=== PATIENT | female | born 1990 | race Caucasian/White ===

== ENCOUNTER → 2019-01-16 09:25 | Outpatient (CLI) | payer OTHER, SELFPAY ==
--- NOTE | 2019-01-16 09:29 | DI.RAD.S_ITS ---
PROCEDURE: XR CERVICAL SPINE 2V OR 3V INDICATIONS: Cervical pain TECHNIQUE: 3 views of the cervical spine were acquired. COMPARISON: None. FINDINGS: Bones: No fractures or dislocations to the C7-T1 level. The lateral masses of C1 appear intact on the odontoid view. There is straightening of the cervical lordosis with slight reversal at C5-C6. No suspicious bony lesions. The disc spaces appear preserved. Soft tissues: No prevertebral soft tissue swelling. IMPRESSION: 1. No fracture or subluxation. 2. Straightening of the cervical lordosis with slight reversal at C5-C6. The finding is nonspecific and may be due to positioning or muscle spasm. Dictated by: Ras Isidro M.D. on 01/16/2019 at 9:45 Approved by: Ras Isidro M.D. on 01/16/2019 at 9:48
== END ==
PROVIDERS: PCP Physician Assistant; Visit Provider Physician Assistant
DX: M54.2 Cervicalgia (principal)
CPT/HCPCS: 72040

== ENCOUNTER → 2020-06-04 11:32 | Outpatient (CLI) | payer OTHER, SELFPAY ==
[2020-06-04 14:47] LABS: Follicle Stimulating Hormone 6.66 mIU/mL; Luteinizing Hormone 4.89 mIU/mL
== END ==
PROVIDERS: PCP Family Medicine; Referring Provider Obstetrics & Gynecology; Visit Provider Obstetrics & Gynecology
DX: E28.2 Polycystic ovarian syndrome (principal)
CPT/HCPCS: 36415; 83001; 83002

== ENCOUNTER → 2020-07-08 15:07 | Outpatient (CLI) | payer OTHER, SELFPAY ==
[2020-07-09 10:14] LABS: COVID19 Sendout Not Detected (Not Detect)
== END ==
PROVIDERS: PCP Family Medicine; Visit Provider Physician Assistant
DX: Z11.59 Encounter for screening for other viral diseases (principal)
CPT/HCPCS: 87635

== ENCOUNTER 2020-07-11 11:00 | Day surgery (SDC) | payer OTHER, SELFPAY ==
[2020-07-09 08:12] VITALS: BMI 21.4
[2020-07-11] VITALS (7 sets, daily range): BP systolic 106–130; BP diastolic 74–91; PULSE 81–106; RESP 11–18; TEMP 36.4–37.1; O2SAT 96–100; BMI 21.4
[2020-07-11] MEDS: ACETAMINOPHEN 325 MG TABLET 975 MG PO (11:24)
[2020-07-11] MEDS: SCOPOLAMINE 1 PATCH TOP (11:25)
[2020-07-11] MEDS: LACTATED RINGERS 1,000 ML 100 ML IV (11:25)
--- NOTE | 2020-07-11 12:01 | PM.HP.1 ---
History of Present Illness History of Present Illness Date Patient Seen: 07/11/20 Time Patient Seen: 12:01 Chief complaint: SDC Narrative: Patient is a 29-year-old 3 para 2 with a hemorrhagic left ovarian cyst that is symptomatic. She is here for a laparoscopic removal of left hemorrhagic ovarian cyst Patient History Medical History (Updated 06/09/20 @ 16:09 by Breonna Weems DO) Polycystic ovaries (Acute) Surgical History History of third molar tooth extraction Status post appendectomy Family & Social History Family History Mother Age: 54 History of melanoma Sister Age: 34 History of cervical cancer Social History: household members spouse,children Tobacco & Substance use: Smoking Status Never smoker alcohol intake current alcohol intake frequency a few times a month Substance Use Type does not use Meds Home Medications and Allergies Home Medications Medication Instructions Recorded Confirmed Type clonazepam 0.5 mg disintegrating See Rx Instructions PO DAILY PRN 03/03/19 07/11/20 Rx tablet #10 tab buspirone 10 mg tablet 10 mg PO BID #60 tab 10/30/19 07/11/20 Rx Allergies Allergy/AdvReac Type Severity Reaction Status Date / Time escitalopram AdvReac Mild Tunnel Verified 07/11/20 11:37 vision Exam Vital Signs (past 8 hours): - 07/11/20 11:31 Temperature 98.8 F Pulse Rate 106 H Respiratory Rate 16 Blood Pressure 130/91 H Pulse Oximetry 100 Oxygen Delivery Method Room Air Narrative Exam Narrative: HEENT: [No thyromegaly, no anterior cervical or supraclavicular lymphadenopathy.] Lungs:[Clear to auscultation bilaterally, no wheezes.] Cardiovascular: [Regular rate and rhythm, no murmurs, rubs, or gallops]. Abdomen: [No scars. No hepatosplenomegaly. No masses palpable.] External genitalia: [Normal] Vagina: [Normal] Cervix: Parous Bimanual exam: 7 Week size uterus. Mobile. Left adnexal tenderness Rectal: [No masses]. Assessment & Plan Assessment & Plan narrative: Assessment: 29-year-old 3 para 2 with a hemorrhagic left ovarian cyst that is symptomatic and persistent Plan: Laparoscopic removal of left ovarian cyst The risks, benefits, and alternatives to the procedure were explained to the patient. The risks including bleeding, infection, injury to the bowel, bladder, or ureters. She understands these risks and agrees to proceed. A full par Q was held and consent form was signed. COVID-19 COVID-19 status: Negative Result date/Date tested (Pos, Neg/Pending): 07/08/20 Time Spent With Patient Time with patient: 15-24 minutes
--- NOTE | 2020-07-11 12:03 | PM.PREOP ---
Pre-operative Note COVID-19 COVID-19 status: Negative Result date/Date tested (Pos, Neg/Pending): 07/08/20 Interval Note History & Physical reviewed/Exam performed by Physician: Yes Changes to H&P: No H&P completed within 30 days and has changed as indicated here:: 07/12/20
--- NOTE | 2020-07-11 12:28 | SUR.OPER ---
Lithotomy on padded OR bed, head on pillow, arms secured on padded arm boards at <90 degrees abduction. Legs secured in padded yellow fins stirrups.
[2020-07-11] MEDS: BUPIVACAINE 0.5% W/ EPI (PF) 30 ML VIAL INJ (12:35)
--- NOTE | 2020-07-11 13:20 | SUR.PHASEI ---
Pt awoke, denied pain, eating ice chips with no complaints.
--- NOTE | 2020-07-11 14:51 | PM.GYNOP.1 ---
Operative Date/Time/Diagnoses Date of procedure: 07/11/20 Time of procedure: 13:00 Pre-op diagnosis: Left hemorrhagic ovarian cyst Left-sided pelvic pain Post-op diagnosis: same Procedure & Clinicians Procedure: Procedures Operation Date: 07/11/20 12:30 Actual Procedures Side Surgeon p Laparoscopic CAUTERIZATION OF MULTIPLE BILATERAL OVARIAN CYSTS LYSIS OF ADHESIONS Left Lucrecia Montoya MD Indications: Left hemorrhagic ovarian cyst Left pelvic pain Surgeon: Lucrecia Montoya Operative Notes Findings: 6- 7 week size anteverted uterus Normal left tube Ovaries bilaterally polycystic in nature Left ovary with a hemorrhagic cyst measuring 2-3 cm. Right ovary with multiple simple cysts largest 1 measuring 1.5 cm Appendix previously removed Liver and gallbladder normal Significant right lower quadrant and mid pelvic adhesions. Omental to anterior abdominal wall adhesion Right tube significantly distorted with adhesions Closure Type: primary Specimen(s): none Estimated blood loss (mL): 5 Blood products transfused: none Procedure in detail: After informed consent was obtained, the patient was taken to the operating room where she was placed in the dorsal supine position. After adequate general endotracheal anesthesia was achieved, she was placed in the dorsal lithotomy position, and prepped and draped in the usual sterile fashion. A time-out was performed. A bivalve speculum was placed into the vagina and the anterior lip of the cervix grasped with a single-tooth tenaculum. Cervical os was sequentially dilated until the Zumi uterine manipulator could pass easily into the endometrial cavity. The single-tooth tenaculum was removed from the anterior lip of the cervix. The bivalve speculum was removed from the vagina. Attention was then turned to the abdomen where 6 cc of 0.25% Marcaine with epinephrine were injected in the umbilical fold. A 5 mm incision was made. The Veress needle was placed into the peritoneal cavity, and its placement confirmed by aspiration and drop test. The abdominal cavity was insufflated with 3.1 L of CO2. The Veress needle was removed, and a 5 mm trocar was placed without difficulty. Initial inspection showed a ?curtain? of omental to anterior abdominal wall adhesions. A 2nd incision was made lateral to the umbilicus, midway between the pubic symphysis and umbilicus, after 6 cc of 0.25% Marcaine with epinephrine were injected. A 5 mm trocar was placed under direct visualization. This was repeated on the patient's right side. The omentum was grasped with an atraumatic grasper and with care to make sure that no bowel was involved with the omentum, the omentum was cauterized and cut near the anterior abdominal wall. Endo Luis were used for the filmy adhesions. The adhesions extended down into the right lower quadrant and near the right tube and ovary. All of these adhesions were taken down. There was an adhesion between the ovary and the anterior abdominal wall and this was cauterized and cut with the PlasmaKinetic. The right ovary was visualized and there were a few small 1 to 1.5 cm simple cyst. PlasmaKinetic was used to open the cyst and cauterize inside. On the left ovary there was a potential small area of endometriosis which was cauterized. There also was a hemorrhagic cyst. This was opened and drained and the inside of the cyst was cauterized. Hemostasis was achieved. The instruments were removed from the abdomen. The CO2 was allowed to escape. The trocars were removed from the abdomen. The incisions were repaired with 4 0 Biosyn in a subcuticular fashion. Steri-Strips, 2 x 2, and op site were placed. The Zumi uterine manipulator was removed from the uterus. Sponge, lap, and instrument counts were correct x2. The patient tolerated the procedure well, and was taken to PACU in stable condition. Complications: none Post-operative Condition: stable Disposition: PACU Plan for aftercare: Home after recovery
== END 2020-07-11 13:59 | disposition home or self-care (01) ==
PROVIDERS: PCP Family Medicine; Referring Provider Obstetrics & Gynecology; Visit Provider Obstetrics & Gynecology
PROC: (CPT 58661; principal; 2020-07-11 12:30)
DX: N83.202 Unspecified ovarian cyst, left side (principal); N83.292 Other ovarian cyst, left side; N73.6 Female pelvic peritoneal adhesions (postinfective)
CPT/HCPCS: 58662; J0330; J1100; J1885; J2250; J2405; J2704; J3010

== ENCOUNTER → 2021-10-13 08:14 | Outpatient (CLI) | payer OTHER, SELFPAY ==
--- NOTE | 2021-10-13 08:15 | DI.US.S_ITS ---
PROCEDURE: US PELVIC COMPLETE INDICATIONS: RIGHT PELVIC PAIN X 1 MONTH. HISTORY OF CYSTS. TECHNIQUE: Real-time scanning was performed of the pelvic organs, with image documentation. Additional endovaginal scanning was necessary due to incomplete visualization of the adnexal and endometrial structures by transabdominal scanning. COMPARISON: None. FINDINGS: Uterus: Uterus is anteverted and normal in size at 7.8 x 5.8 x 4.4 cm. The myometrium is homogeneous. The endometrium measures 3.7 mm combined thickness. Trace anechoic fluid noted in the endometrial cavity Ovaries: The right ovary measures 3.4 x 2.4 x 2.5 cm, with a calculated ovarian volume of 10.7 cc. The left ovary measures 2.6 x 2.1 x 2.5 cm, with a calculated ovarian volume of 5.7 cc. The ovaries have a normal sonographic appearance. Less than 12 follicles can be seen in each ovary. No adnexal masses are seen. Doppler evaluation demonstrates normal arterial and venous flow in the ovaries bilaterally. Other: No pathologic free abdominal or pelvic fluid. IMPRESSION: 1. Uterus is sonographically normal. 2. Adnexa are sonographically normal. 3. No evidence of ovarian torsion. Please note ultrasound cannot exclude intermittent ovarian torsion. Dictated by: Juanis Jones MD, PhD on 10/14/2021 at 16:26 Approved by: Juanis Jones MD, PhD on 10/14/2021 at 16:29 We strive to produce accurate, complete, and clear reports of imaging services. To assist us in improving patient care, this report was composed using standard report templates and voice recognition software. Therefore, it may contain abnormal punctuation, misrecognitions, insertions and/or omissions. Occasional wrong-word or sound-alike substitutions may occur. Though we review the report and make efforts to correct it, we do recommend that the report be read carefully in proper context to recognize any text inaccuracies.
== END ==
PROVIDERS: PCP Family Medicine; Referring Provider Obstetrics & Gynecology; Visit Provider Obstetrics & Gynecology
DX: E28.2 Polycystic ovarian syndrome (principal); R10.2 Pelvic and perineal pain; M54.9 Dorsalgia, unspecified
CPT/HCPCS: 76830; 76856

== ENCOUNTER → 2022-02-02 10:48 | Outpatient (CLI) | payer OTHER, SELFPAY ==
[2022-02-02 14:02] LABS: COVID19 -Nasal RAPID Negative (Negative)
== END ==
PROVIDERS: PCP Family Medicine; Visit Provider Obstetrics & Gynecology
DX: Z01.812 Encounter for preprocedural laboratory examination (principal); Z20.822 Contact with and (suspected) exposure to COVID-19
CPT/HCPCS: 87635

== ENCOUNTER 2022-02-03 08:18 | Day surgery (SDC) | payer OTHER, SELFPAY ==
--- NOTE | 2022-02-03 | PATH_ITS ---
[facility] Accession Number: [id number] . 01 Material submitted: . fallopian tube - RIGHT TUBE . 02 Diagnosis: Right Tube, Salpingectomy: Fallopian tube, complete cross sections; negative for malignancy. Benign multiloculated paratubal cyst (1.2 cm). MRV 02/06/2022 1302 Local . 02 Electronically signed: . Cheyenne Le MD, Pathologist NPI- [id number] . 01 Gross description: . Received in formalin and labeled with the patient's name and designated right tube is a 7.5 cm long x 0.4 - 0.6 cm in diameter fimbriated fallopian tube. The outer surface is vicente-estrada with mild focal adhesions and one, 1.2 cm multiloculated, semi-translucent smooth-walled paratubal cyst filled with clear watery fluid, adjacent to the attached open fimbria. No additional lesions are identified. Surgery Scheduler sections, including entire bisected fimbria and paratubal cyst, are submitted in A1. ([id number]) /[facility] 02/05/2022 1725 Local . 02 Pathologist provided ICD-10: N93.9, R10.2, R10.31, Z30.430, N83.8 . 02 CPT . 041614 Specimen Comment: A courtesy copy of this report has been sent to [phone] Specimen Comment: [id number] Performed at: 01 [facility] [address] [facility], [place], [place] [id number] MD Ras Martins MD Phone: [phone] Performed at: 02 [facility] [id number] [place] [id number] MD Albertina Rubi MD Phone: [phone]
[2022-02-03 08:38] VITALS: BP 130/97; PULSE 93; RESP 16; TEMP 36.3; O2SAT 100; BMI 21.9
[2022-02-03] MEDS: LACTATED RINGERS 1,000 ML 100 ML IV (08:53)
--- NOTE | 2022-02-03 09:06 | PM.PREOP ---
Pre-operative Note COVID-19 COVID-19 status: Negative Result date/Date tested (Pos, Neg/Pending): 02/02/22 Criteria for continued procedure: Delay expected to result in less-positive ultimate med/surg outcome and Non-surgical alternatives not available or appropriate per current SOC Interval Note History & Physical reviewed/Exam performed by Physician: Yes Changes to H&P: No H&P completed within 30 days and has changed as indicated here:: 01/28/22
--- NOTE | 2022-02-03 09:21 | SUR.OPER ---
Lithotomy on padded OR bed, head on pillow, arms secured on padded arm boards at <90 degrees abduction. Legs secured in padded yellow fins stirrups.
[2022-02-03] MEDS: CEFAZOLIN 2 GM/20 ML SYRINGE IV (09:43)
[2022-02-03] MEDS: BUPIVACAINE 0.5% (PF) 30 ML, EPINEPHrine 0.15 MG INJ (10:26)
--- NOTE | 2022-02-03 10:44 | SUR.OPER ---
Mirena implant 02-03-2022. Lot #[id number] Exp: 12/2023
[2022-02-03 10:59] VITALS: BP 86/65; PULSE 120; RESP 16; TEMP 36; O2SAT 99
--- NOTE | 2022-02-03 11:00 | P.OP_ITS ---
Operative Date/Time/Diagnoses Date of procedure: 02/03/22 Time of procedure: 11:00 Pre-op diagnosis: Pelvic adhesions Pelvic pain Contraceptive management Post-op diagnosis: same Procedure & Clinicians Procedure: Procedures Operation Date: 02/03/22 09:45 Actual Procedure Side Surgeon samuel PARHAM Laparoscopy/ Lysis of Adhesions/ Right salpingectomy Lucrecia Montoya MD s D&C Hysteroscopy, Mirena IUD placement Lucrecia Montoya MD Indications: Pelvic pain Pelvic adhesions Contraceptive management Surgeon: Lucrecia Montoya Agricultural Research Engineer: Francisco Apple Anesthesia Type: General and Local Operative Notes Findings: 6 week size anteverted uterus RLQ adhesions Omental to anterior abdominal wall adhesions Normal right ovary Normal left tube and ovary Normal liver and gallbladder Right tube tortuous and dilated and adhesed to right pelvic sidewall Closure Type: primary Specimen(s): right tube Applied: catheter (in/out) Estimated blood loss (mL): 5 Blood products transfused: none Procedure in detail: The patient was taken to the operating room where she was placed in the dorsal supine position. After adequate general endotracheal anesthesia was achieved, she was placed in the dorsal lithotomy position, and prepped and draped in the usual sterile fashion. A time-out was performed. A bivalve speculum was placed into the vagina and the anterior lip of the cervix was grasped with a single- tooth tenaculum. The cervical os was sequentially dilated until the Zumi uterine manipulator could pass easily into the endometrial cavity. The single- tooth tenaculum was removed from the anterior lip of the cervix. The bivalve speculum was removed from the vagina. Attention was then turned to the abdomen where 6 cc of 0.5% Marcaine with epinephrine were injected in the umbilical fold. A 5 mm incision was made through the previous incision. The Veress needle was placed into the peritoneal cavity, and its placement confirmed by aspiration and drop test. The abdominal cavity was insufflated with 3.0 L of CO2. The Veress needle was removed, and a 5 mm trocar was placed without difficulty. Two other incisions were made 4 cm lateral to the midline through previous laparoscopy incisions after 6 cc of 0.5% Marcaine with epinephrine were injected and 5 mm incisions were made. Two 5 mm trocars were placed under direct visualization. The pelvis and abdomen were examined with findings noted above. Using the LigaSure or, the omentum was taken down off of the anterior abdominal wall with cautery and cut. The right tube was grasped with an atraumatic grasper. Using the LigaSure were to dissect out from the lateral wall and then using cautery and cut the tube was from the right sidewall. The mesosalpinx was cauterized and cut all the way down to the cornua of the uterus and the tube was amputated at the cornua using the LigaSure. Hemostasis was achieved. There was no bleeding noted. The instruments were removed from the abdomen the CO2 was allowed to escape. All of the incisions were closed with 4-0 Monocryl in a subcuticular fashion. Steri-Strips and Allevyn dressings were placed. Attention was then turned to the vagina where the Zumi uterine manipulator was removed from the uterus. A bivalve speculum was placed into the vagina. The single-tooth tenaculum was placed on the anterior lip of the cervix. The hysteroscope passed easily into the endometrial cavity. Both fallopian tube ostia were observed. There were no polyps or fibroids. The hysteroscope was removed. The fluid was cleared from the uterus. The Mirena IUD was placed at the fundus of the uterus and released. The strings were cut to 1.5 cm. The single-tooth tenaculum was removed from the anterior lip of the cervix. The bivalve speculum was removed from the vagina. Sponge, lap, and instrument counts were correct x2. The patient tolerated the procedure well, and was taken to PACU in stable condition. Complications: none Post-operative Condition: stable Disposition: PACU Plan for aftercare: Home after recovery
[2022-02-03 11:08] VITALS: BP 96/53; PULSE 81; RESP 17; O2SAT 99
[2022-02-03 11:25] VITALS: BP 101/69; PULSE 74; RESP 15; O2SAT 98
[2022-02-03] MEDS: OXYCODONE/ACETAMINOPHEN 5/325 TABLET 1 TAB PO (11:37)
[2022-02-03 11:40] VITALS: BP 111/76; PULSE 75; RESP 15; O2SAT 99
[2022-02-03 12:03] VITALS: BP 106/67; PULSE 66; RESP 15; O2SAT 99
== END 2022-02-03 12:22 | disposition home or self-care (01) ==
PROVIDERS: PCP Family Medicine; Referring Provider Obstetrics & Gynecology; Visit Provider Obstetrics & Gynecology
PROC: (CPT 58661; principal; 2022-02-03 09:45)
PROC: 0UDB8ZZ Extraction of Endometrium, Via Natural or Artificial Opening Endoscopic (ICD-10-PCS; CPT 58558; 2022-02-03 09:45)
DX: R10.2 Pelvic and perineal pain (principal); Z30.430 Encounter for insertion of intrauterine contraceptive device; N73.6 Female pelvic peritoneal adhesions (postinfective); N83.8 Other noninflammatory disorders of ovary, fallopian tube and broad ligament
CPT/HCPCS: 58661; 58555; 58300; 81025; J0171; J0330; J0690; J1885; J2250; J2704; J3010; J7298

== ENCOUNTER → 2023-08-10 11:51 | Outpatient (CLI) | payer OTHER, SELFPAY ==
[2023-08-10 13:02] LABS: Add Manual Diff / Slide Review NO; Basophils Absolute Auto 100 /uL (0-100); Basophils Percent Auto 1.1 % (0-2); Eosinophils Absolute Auto 100 /uL (0-450); Eosinophils Percent Auto 2.1 % (2-4); Hematocrit 38.7 % (36-46); Hemoglobin 13.3 g/dL (12.0-16.0); Lymphocytes Absolute Auto 1600 /uL (1100-4500); Lymphocytes Percent Auto 28.5 % (25-40); Mean Corpuscular HGB Conc 34.5 % (30-36); Mean Corpuscular Hemoglobin 29.3 PG (26-34); Mean Corpuscular Volume 84.8 fL (80-100); Monocytes Absolute Auto 400 /uL (0-900); Monocytes Percent Auto 7.1 % (3-14); Neutrophils Absolute Auto 3400 /uL (1500-7000); Neutrophils Percent Auto 61.2 % (50-75); Platelet Count 341 X10^3/uL (150-400); Red Blood Cell Count 4.56 X10^6/uL (4.0-5.2); Red Cell Distribution Width 12.9 % (11.6-14.8); White Blood Cell Count 5.5 X10^3/uL (4.5-11.0)
[2023-08-10 13:30] LABS: HEMOLYSIS < 15 (0-50); Iron 100 ug/dL (37-170)
[2023-08-10 13:33] LABS: Alanine Aminotransferase 22 IU/L (<35); Albumin 4.7 g/dL (3.5-5.0); Albumin Globulin Ratio 1.3 (1.0-2.8); Alkaline Phosphatase 62 U/L (38-126); Aspartate Aminotransferase 34 IU/L (14-36); BUN Creatinine Ratio 23.1 (6-22); Bilirubin Total 1.7 mg/dL (0.2-1.3); Blood Urea Nitrogen 15 mg/dL (7-17); Calcium 9.7 mg/dL (8.4-10.2); Carbon Dioxide 25 mmol/L (22-32); Chloride 105 mmol/L (98-107); Estimated Glomerular Filt Rate > 60 mL/min (>60); Globulin 3.5 g/dL (1.7-4.1); Glucose 97 mg/dL (70-100); HEMOLYSIS < 15 (0-50); Magnesium 2.1 mg/dL (1.6-2.3); Potassium 3.7 mmol/L (3.4-5.1); Sodium 140 mmol/L (137-145); Total Protein 8.2 g/dL (6.3-8.2)
[2023-08-10 13:43] LABS: Percent Iron Saturation 33 % (15-50); Total Iron Binding Capacity 299 ug/dL (265-497); Transferrin 219 mg/dL (206-381)
[2023-08-10 14:02] LABS: TSH w/ Reflex to FT4 1.73 uIU/mL (0.47-4.68)
[2023-08-10 14:09] LABS: Ferritin 44 ng/mL (6-137)
[2023-08-10 14:25] LABS: Vitamin B12 618 pg/mL (239-931)
== END ==
PROVIDERS: PCP Family Medicine; Referring Provider Physician Assistant; Visit Provider Physician Assistant
DX: R25.3 Fasciculation (principal); R53.83 Other fatigue; Z86.2 Personal history of diseases of the blood and blood-forming organs and certain disorders involving the immune mechanism
CPT/HCPCS: 36415; 80053; 82607; 82728; 83540; 83550; 83735; 84443; 85025

== ENCOUNTER → 2025-01-24 07:43 | Outpatient (CLI) | payer OTHER, SELFPAY ==
--- NOTE | 2025-01-24 07:52 | DI.US.S_ITS ---
PROCEDURE: US PELVIC COMPLETE INDICATIONS: DUB TECHNIQUE: Real-time scanning was performed of the pelvic organs, with image documentation. Additional endovaginal scanning was necessary due to incomplete visualization of the adnexal and endometrial structures by transabdominal scanning. COMPARISON: [facility], US, US PELVIC COMPLETE, 10/13/2021, 8:35. FINDINGS: Uterus: Uterus is anteverted and normal in size at 8.6 x 4.4 x 5.5 cm. The myometrium is homogeneous. No myometrial mass. The endometrium measures 5.1 mm combined thickness. No endometrial abnormalities seen. Normal parenchymal vascularity. Ovaries: The right ovary measures 2.1 x 2.2 x 1.6 cm, with a calculated ovarian volume of 3.8 cc. The left ovary measures 2.1 x 2.0 x 1.1 cm, with a calculated ovarian volume of 2.3 cc. The ovaries have a normal sonographic appearance. Less than 12 follicles can be seen in each ovary. No adnexal masses are seen. Other: No pathologic free abdominal or pelvic fluid. IMPRESSION: Normal pelvic ultrasound without explanation for dysfunctional uterine bleeding. We strive to produce accurate, complete, and clear reports of imaging services. To assist us in improving patient care, this report was composed using standard report templates and voice recognition software. Therefore, it may contain abnormal punctuation, insertions and/or omissions. Occasional wrong-word or sound-alike substitutions may occur. Though we review the report and make efforts to correct it, we do recommend that the report be read carefully in proper context to recognize any text inaccuracies. Dictated by: Fern Sinclair M.D. on 01/24/2025 at 9:30 Approved by: Fern Sinclair M.D. on 01/24/2025 at 9:32
== END ==
PROVIDERS: PCP Student in an Organized Health Care Education/Training Program; Referring Provider Obstetrics & Gynecology; Visit Provider Obstetrics & Gynecology
DX: N73.6 Female pelvic peritoneal adhesions (postinfective) (principal); N94.6 Dysmenorrhea, unspecified
CPT/HCPCS: 76830; 76856

== ENCOUNTER → 2025-02-17 10:02 | Outpatient (CLI) | payer OTHER, SELFPAY ==
[2025-02-17 11:43] LABS: Free T4, Direct Thyroxine 1.13 ng/dL (0.78-2.19)
[2025-02-17 11:57] LABS: Thyroid Stimulating Hormone 1.61 uIU/mL (0.47-4.68)
[2025-02-17 16:15] LABS: Follicle Stimulating Hormone 10.6 mIU/mL; Luteinizing Hormone 4.58 mIU/mL; Progesterone, Total 0.74 ng/mL
== END ==
LOC: LAB 10:03
PROVIDERS: PCP Student in an Organized Health Care Education/Training Program; Referring Provider Obstetrics & Gynecology; Visit Provider Obstetrics & Gynecology
DX: N93.9 Abnormal uterine and vaginal bleeding, unspecified (principal)
CPT/HCPCS: 36415; 83001; 83002; 84144; 84439; 84443

== ENCOUNTER 2025-05-17 15:22 | Emergency (ER) | payer OTHER, SELFPAY ==
[2025-05-17 15:28] VITALS: BP 162/98; PULSE 102; RESP 16; TEMP 36.8; O2SAT 98; BMI 22.8
--- NOTE | 2025-05-17 15:41 | ED_ITS ---
<Statement entered by Arjun Andino, DO - 05/19/25 03:07> Co-sign statement: I was available for consultation during this patient's emergency department visit. This chart is being signed by myself for administrative purposes only. I do not have direct contact with this patient during this visit. They were seen independently by the APC. HPI - Female Genitourinary General Chief complaint: Urogenital-Female Stated complaint: Blood In Urine, Back Pain Time Seen by Provider: 05/17/25 15:38 History of Present Illness HPI Narrative: This is a 34-year-old female presenting to the emergency department due to hematuria. States that 2 days ago she began to notice right upper abdominal and right flank pain that would come in waves. This morning she noticed hematuria. No significant burning or frequency. Did she also reports some nausea. Denies any vaginal bleeding or discharge currently. Related Data Previous Rx's ?Medication ?Instructions ?Recorded clonazepam 0.5 mg disintegrating See Rx Instructions P O DAILY PRN 08/10/23 tablet Anxiety related to travel #1 0 tabs sertraline 50 mg tablet 75 mg (1.5 x 50 mg) PO DAILY #90 01/25/25 tabs hydroxyzine HCl 25 mg tablet 25 mg PO BID PRN anxiety #30 tabs 01/31/25 Allergies Allergy/AdvReac Type Severity Reaction Status Date / Time escitalopram AdvReac Mild Tunnel Verified 05/17/25 15:29 vision Review of Systems Review of Systems Narrative: GENERAL: Denies chills, fatigue, malaise, fever, sweats. HEENT: Denies sinus pain, ear pain, sore throat, difficulty swallowing, dizziness. RESPIRATORY: Denies dyspnea, cough, wheezing, hemoptysis, sputum. CARDIOVASCULAR: Denies chest pain, palpitations, orthopnea, edema, GASTROINTESTINAL: Reports right upper quadrant abdominal pain and reports nausea, denies vomiting, abdominal pain, diarrhea, constipation, melena. : Reports dysuria and right flank pain and hematuria Denies frequency, incontinence, urinary retention. MUSCULOSKELETAL: denies weakness, joint pain, or bony pain SKIN: Denies rash, skin lesions, or other NEUROLOGIC: Denies weakness, headache, numbness, change in speech, confusion, seizures, incoordination. PSYCHIATRIC: No concerning psychosocial issues. 12 point review of systems is negative except for those stated above Patient History Medical History (Updated 05/17/25 @ 19:08 by Pool Johnson PA-C) Polycystic ovaries Surgical History (Updated 01/28/22 @ 09:35 by Sofia Leon RN) History of gynecologic surgery (08/07/20) Status post appendectomy History of third molar tooth extraction Family History Mother Age: 58 History of melanoma Sister Age: 38 History of cervical cancer Exam Narrative Exam Narrative: GENERAL: Well-developed patient, in mild distress. HEAD: Atraumatic. Normocephalic. EYES: Pupils equal round and reactive. Extraocular motions intact. No scleral icterus. No injection or drainage. ENT: Nose without bleeding, purulent drainage. Throat without erythema, tonsillar hypertrophy or exudate. Airway patent. NECK: Trachea midline. Non tender EXTREMITIES: No edema or joint tenderness. NEURO: AOx3. SKIN: No rash or erythema of visible areas Back: Right flank tenderness to palpation Abdomen: Right upper quadrant tenderness to palpation Initial Vital Signs Initial Vital Signs: Vital Signs Temperature 98.3 F 05/17/25 15:28 Pulse Rate 102 H 05/17/25 15:28 Respiratory Rate 16 05/17/25 15:28 Blood Pressure 162/98 H 05/17/25 15:28 Pulse Oximetry 98 05/17/25 15:28 Oxygen Delivery Method Room Air 05/17/25 15:28 Course Orders Ordered: ED Orders 05/17/25 15:37 Test Urine Stat Urinalysis and Microscopic Stat 05/17/25 16:08 CT abdomen pelvis wo con Stat 05/17/25 17:26 CBC Auto Diff [Complete Blood Count AUTO DIFF] Stat CMP [Comprehensive Metabolic Panel] Stat Vital Signs Vital signs: Vital Signs - 8 hr 05/17/25 15:28 Temperature 98.3 F Pulse Rate 102 H Respiratory Rate 16 Blood Pressure 162/98 H Pulse Oximetry 98 Oxygen Delivery Method Room Air MDM - Female Genitourinary Lab Data 05/17/25 17:26 05/17/25 17:26 Labs: Lab Results 05/17/25 05/17/25 Range/Units 15:37 17:26 WBC 8.4 (4.5-11.0) X10^3/uL RBC 4.60 (4.0-5.2) X10^6/uL Hgb 13.6 (12.0-16.0) g/dL Hct 38.7 (36-46) % MCV 84.2 (80-100) fL MCH 29.6 (26-34) PG MCHC 35.2 (30-36) % RDW 12.7 (11.6-14.8) % Plt Count 342 (150-400) X10^3/uL Neut % (Auto) 74.8 (50-75) % Lymph % (Auto) 15.9 L (25-40) % Bell % (Auto) 6.9 (3-14) % Eos % (Auto) 1.4 L (2-4) % Baso % (Auto) 1.0 (0-2) % Neut # (Auto) 6200 (6907-3305) /uL Lymph # (Auto) 1300 (2596-0913) /uL Bell # (Auto) 600 (0-900) /uL Eos # (Auto) 100 (0-450) /uL Baso # (Auto) 100 (0-100) /uL Sodium 139 (137-145) mmol/L Potassium 4.3 (3.4-5.1) mmol/L Chloride 104 (98-107) mmol/L Carbon Dioxide 27 (22-32) mmol/L BUN 17 (7-17) mg/dL Creatinine 0.71 (0.52-1.04) mg/dL Estimated GFR > 60 (>60) mL/min BUN/Creatinine Ratio 23.9 H (6-22) Glucose 108 H (70-99) mg/dL Calcium 9.9 (8.4-10.2) mg/dL Total Bilirubin 1.4 H (0.2-1.3) mg/dL AST 30 (14-36) IU/L ALT 30 (<35) IU/L Alkaline Phosphatase 63 (38-126) U/L Total Protein 8.2 (6.3-8.2) g/dL Albumin 4.9 (3.5-5.0) g/dL Globulin 3.3 (1.7-4.1) g/dL Albumin/Globulin Ratio 1.5 (1.0-2.8) Urine Color Yellow Urine Appearance Clear Urine pH 6.5 (4.5-8.0) Ur Specific [place] <=1.005 (1.000-1.035) Urine Protein Negative (Negative) Urine Glucose (UA) Negative (Negative) g/dL Urine Ketones Negative (NEGATIVE) Urine Occult Blood 3+ H (Negative) Urine Nitrate Negative (Negative) Urine Bilirubin Negative (NEGATIVE) Urine Urobilinogen 0.2 (0.2) E.U./dL Ur Leukocyte Esterase Negative (NEGATIVE) Urine RBC 5-10/hpf H (0-5/HPF) Urine WBC None seen (0-5/HPF) Ur Squamous Epith Cells None seen (0-5/HPF) Urine Bacteria None seen (None) Ur Culture Indicated? Cult not indicated Vol Urine Centrifuged 10ml (spun) Urine Test Negative (Negative) MDM Narrative Medical decision making narrative: ED course: This is a 34-year-old female presenting to the emergency department due to hematuria. CT scan was ordered without contrast as difficulty placing line. CT showed abnormalities concerning for possible blood clots. UA showed blood but no evidence of infection otherwise. This was discussed with urology who recommended a postvoid residual which was reassuring as well as a CT urogram. After speaking with CT here in-house unable to obtain due to imaging protocol. Discussed this with the Urology who stated that it would be appropriate to be done outpatient it was well. They recommend referral to urology for follow up. Referral placed. Patient requested to be seen here in [place]. CC: Hematuria Complicating co-morbidities: None Data collected from: Previous notes Medical records reviewed: Patient was followed by IRENA Jara due to abnormal uterine bleeding. Plenty for hysterectomy next month. Not on control. . History of polycystic ovaries. Status post appendectomy. History of adenomyosis. Planning for a laparoscopic supracervical hysterectomy. Also has a history of right fallopian tube removal. Differential considered, but not limited to: Hematuria, urinary tract infection, nephrolithiasis Exam documented above, pertinent findings include: Right flank tenderness to palpation Lab Test results independently reviewed as above. Pertinent findings: Lab work reassuring otherwise creatinine within normal limits Imaging studies independently reviewed: CT showed evidence of possible clot in the right renal collecting system Scores Used: None MIPS Elements: None Consultations: None Treatments: None Re-evaluations: None Discussion: Discussed plan with the patient was comfortable with the plan Diagnosis: Hematuria Disposition: see below, along with detailed discharge instructions that have been reviewed with patient as well as indications for ED re-evaluation and additional outpatient follow up Discharge Plan Departure Patient Disposition: Home Clinical Impression: Hematuria Activity Restrictions/Additional Instructions: Thank you for coming to the [facility] Emergency Department today. Your workup today showed possible blood clots in your right kidney system. These are not emergent but due need follow up with Urology. I have attached information below. Please call them tomorrow to arrange for an appointment. Your lab work otherwise today was reassuring. There was no evidence of an infection. Please return to the emergency department if you develop any significant worsening pain, or any other concerning signs or symptoms. I hope you feel better soon. Please follow up with your primary care provider within a week if your symptoms continue. If you do not have a primary care provider please contact the [facility] Resource line at [phone]. They will ask some questions about your medical history and help you get set up with a provider in the community. Prescriptions: No Action sertraline 50 mg tablet 75 mg PO DAILY Qty: 90 3RF clonazepam 0.5 mg tablet,disintegrating See Rx Instructions PO DAILY PRN (Reason: Anxiety related to travel) Qty: 10 0RF Dose Instruction: 0.5-1mg PO DAILY PRN; Rx Instructions: 0.5-1mg PO DAILY PRN; hydroxyzine HCl 25 mg tablet 25 mg PO BID PRN (Reason: anxiety) Qty: 30 2RF Referrals: Dong Ball DO [Physician, Urology] Referral Note: Hematuria, [facility] recommended CT Urogram and outpt f/u, pt requested to be seen in [place]. Thank you! Clinical Impression: Hematuria Mariela Rios MD [Primary Care Provider, Family Practice] Stand Alone Forms: Patient Portal/API
[2025-05-17 15:53] LABS: Appearance Urine UA CLEAR; Bilirubin Urine UA NEGATIVE (NEGATIVE); Color Urine UA YELLOW; Glucose Urine UA NEGATIVE (Negative); Ketones Urine UA NEGATIVE (NEGATIVE); Leukocyte Esterase Urine UA NEGATIVE (NEGATIVE); Nitrite Urine UA NEGATIVE (Negative); Occult Blood Urine UA 3+ (Negative); Protein Urine UA NEGATIVE (Negative); Specific Gravity Urine UA <=1.005 (1.000-1.035); Urobilinogen Urine UA 0.2 E.U./dL (0.2)
[2025-05-17 15:59] LABS: pH Urine UA 6.5 (4.5-8.0)
[2025-05-17 16:00] LABS: Culture Indicated Urine Cult Not Indicated
--- NOTE | 2025-05-17 16:08 | DI.CT.S_ITS ---
PROCEDURE: CT ABDOMEN PELVIS WO CON INDICATIONS: Hematuria TECHNIQUE: Axial sections were acquired from the lung bases to the pubic symphysis. Coronal and sagittal reformats were performed. For radiation dose reduction, the following was used: automated exposure control, adjustment of mA and/or kV according to patient size. COMPARISON: None. FINDINGS: Image quality: Diagnostic. Lower Chest: No significant findings. URINARY: Right Kidney: Mild hyperdensity in right renal collecting system is seen. No obstructing stones or hydronephrosis. Right Ureter: No hydroureter. Left Kidney: no stones or hydronephrosis. Left Ureter: No hydroureter. Bladder: Normal wall thickness. No stones. ABDOMEN: Liver: No contour-deforming solid mass. Gallbladder: Small calcified stone in dependent portion of gallbladder lumen is seen. No gallbladder wall thickening. Biliary ducts: No biliary dilation. Pancreas: No ductal dilation. Spleen: Size is within normal limits. Adrenal Glands: No adrenal nodules. Stomach and Bowel: No bowel obstruction or abnormal bowel wall thickening. No mesenteric fat stranding. Mild fecal stasis in the colon is seen. No abscess collection. Peritoneum: No abnormal intraperitoneal fluid. No free air. Ventral Wall: No hernia. Abdominal Nodes: No enlarged retroperitoneal or mesenteric lymph nodes. Vessels: Aorta and inferior vena cava are normal in size. PELVIS: Pelvic Organs: Unremarkable. Pelvic Nodes: Unremarkable. Miscellaneous: No inguinal hernias are seen. Bones: No aggressive appearing bony lesions. IMPRESSION: 1. No obstructing stones or hydronephrosis. No hydroureter. Normal appearing urinary bladder. 2. Hyperdensity seen in right renal collecting system which may represent blood clots. Urological correlation is recommended. 3. No contour deforming renal lesion is seen. 4. Cholelithiasis without CT evidence of acute cholecystitis. 5. No bowel obstruction or abnormal bowel wall thickening. No free fluid or free air. Dictated by: Dallin Downey M.D. on 05/17/2025 at 16:59 Approved by: Dallin Downey M.D. on 05/17/2025 at 17:05
[2025-05-17 17:32] LABS: Add Manual Diff / Slide Review NO; Hematocrit 38.7 % (36-46); Hemoglobin 13.6 g/dL (12.0-16.0); Lymphocytes Absolute Auto 1300 /uL (1100-4500); Mean Corpuscular HGB Conc 35.2 % (30-36); Mean Corpuscular Hemoglobin 29.6 PG (26-34); Mean Corpuscular Volume 84.2 fL (80-100); Platelet Count 342 X10^3/uL (150-400)
[2025-05-17 17:45] LABS: Alanine Aminotransferase 30 IU/L (<35); Albumin 4.9 g/dL (3.5-5.0); Albumin Globulin Ratio 1.5 (1.0-2.8); Alkaline Phosphatase 63 U/L (38-126); Blood Urea Nitrogen 17 mg/dL (7-17); Calcium 9.9 mg/dL (8.4-10.2); Carbon Dioxide 27 mmol/L (22-32); Chloride 104 mmol/L (98-107); Estimated Glomerular Filt Rate > 60 mL/min (>60); Globulin 3.3 g/dL (1.7-4.1); Glucose 108 mg/dL (70-99); HEMOLYSIS < 15 (0-50); Potassium 4.3 mmol/L (3.4-5.1); Sodium 139 mmol/L (137-145); Total Protein 8.2 g/dL (6.3-8.2)
[2025-05-17 19:11] VITALS: BP 138/67; PULSE 88; RESP 18; TEMP 36.7; O2SAT 99
== END 2025-05-17 19:12 | disposition home or self-care (01) ==
PROVIDERS: Family Medicine; Emergency Provider Physician Assistant Medical; PCP Student in an Organized Health Care Education/Training Program
DX: R31.9 Hematuria, unspecified (principal); R10.11 Right upper quadrant pain
CPT/HCPCS: 36415; 51798; 74176; 80053; 81001; 81025; 85025; 99282; 99284

== ENCOUNTER 2025-05-19 09:30 | Emergency (ER) | payer OTHER, SELFPAY ==
[2025-05-19 09:58] VITALS: BP 137/88; PULSE 109; RESP 16; TEMP 36.6; O2SAT 100; BMI 22.8
[2025-05-19 10:30] LABS: Add Manual Diff / Slide Review NO; Hematocrit 38.7 % (36-46); Hemoglobin 13.6 g/dL (12.0-16.0); Lymphocytes Absolute Auto 1600 /uL (1100-4500); Mean Corpuscular HGB Conc 35.1 % (30-36); Mean Corpuscular Hemoglobin 29.6 PG (26-34); Mean Corpuscular Volume 84.4 fL (80-100); Platelet Count 318 X10^3/uL (150-400)
[2025-05-19 10:36] LABS: Culture Indicated Urine Cult Not Indicated
[2025-05-19 10:43] LABS: Alanine Aminotransferase 23 IU/L (<35); Albumin 4.9 g/dL (3.5-5.0); Albumin Globulin Ratio 1.5 (1.0-2.8); Alkaline Phosphatase 61 U/L (38-126); Blood Urea Nitrogen 10 mg/dL (7-17); Calcium 9.6 mg/dL (8.4-10.2); Carbon Dioxide 26 mmol/L (22-32); Chloride 105 mmol/L (98-107); Estimated Glomerular Filt Rate > 60 mL/min (>60); Globulin 3.3 g/dL (1.7-4.1); Glucose 116 mg/dL (70-99); HEMOLYSIS < 15 (0-50); Lipase 35 U/L (23-300); Potassium 4.5 mmol/L (3.4-5.1); Sodium 139 mmol/L (137-145); Total Protein 8.2 g/dL (6.3-8.2)
--- NOTE | 2025-05-19 11:53 | ED_ITS ---
HPI - Abdominal Pain General Chief Complaint: Abdominal Pain Stated Complaint: Blood in Urine/Kidney blood clot/Gallstones Time Seen by Provider: 05/19/25 11:39 Source: patient Mode of arrival: Ambulatory History of Present Illness HPI narrative: Ms. Delong is a pleasant 34-year-old female with a past medical history of AUB with hysterectomy scheduled for next month, appendectomy who presents to the emergency department for worsening hematuria and right-sided flank pain x 4 days. Patient was experiencing intermittent right flank pain and hematuria so she came to the emergency department on 05/17/2025. They were unable to place an IV so she had a noncontrast CT abdomen pelvis which revealed hypodensity seen in the right renal collecting system which may represent blood clots urologic correlation is recommended. Neurology on-call recommended CT urography but was unable to be performed at this time so they advised outpatient follow up for CT. However patient returns to the ED today for worsening right flank pain, increase in hematuria, and an episode of emesis this morning. Patient describes right-sided abdominal pain that is constant. She is also passing bright red blood and occasional clots in her urine but denies dysuria or burning. Denies fevers, chills, diarrhea, constipation. No blood thinner use. She took Tylenol this morning. Related Data Previous Rx's ?Medication ?Instructions ?Recorded clonazepam 0.5 mg disintegrating See Rx Instructions P O DAILY PRN 08/10/23 tablet Anxiety related to travel #1 0 tabs sertraline 50 mg tablet 75 mg (1.5 x 50 mg) PO DAILY #90 01/25/25 tabs hydroxyzine HCl 25 mg tablet 25 mg PO BID PRN anxiety #30 tabs 01/31/25 hydrocodone 5 mg-acetaminophen 325 1 tab PO Q4-6H PRN pain #12 tabs 05/19/25 mg tablet Allergies Allergy/AdvReac Type Severity Reaction Status Date / Time escitalopram AdvReac Mild Tunnel Verified 05/19/25 10:02 vision Review of Systems Review of Systems ROS Unobtainable: All systems reviewed & are unremarkable except as noted in HPI and below Patient History Medical History Polycystic ovaries Surgical History History of gynecologic surgery (08/07/20) Status post appendectomy History of third molar tooth extraction Family History Mother Age: 58 History of melanoma Sister Age: 38 History of cervical cancer Social History household members: spouse and children second hand exposure: No alcohol intake: current substance use type: does not use alcohol intake frequency: a few times a month Exam Narrative Exam Narrative: GENERAL: 34 year old patient appears stated age. Well-developed patient, in no acute distress. HEAD: Atraumatic. Normocephalic. EYES: No scleral icterus. No injection or drainage. NECK: Trachea midline. Cervical ROM intact. CARDIOVASCULAR: Regular rate and rhythm. RESPIRATORY: ?Nonlabored respirations. ?Speaking in clear, full sentences. ?Clear to auscultation. Breath sounds equal bilaterally. No wheezes, rales, or rhonchi. ? GASTROINTESTINAL: Nonfocal tenderness to palpation of right lateral abdomen, negative Arce's sign. Bowel sounds present. No rebound or guarding. BACK: No CVA tenderness. NEURO: AOx3. ?Clear speech. ?Moves all 4 extremities appropriately. SKIN: No rash or erythema of visible areas Initial Vital Signs Initial Vital Signs: Vital Signs Temperature 98 F 05/19/25 09:58 Pulse Rate 109 H 05/19/25 09:58 Respiratory Rate 16 05/19/25 09:58 Blood Pressure 137/88 05/19/25 09:58 Pulse Oximetry 100 05/19/25 09:58 Oxygen Delivery Method Room Air 05/19/25 09:58 Course Orders Ordered: ED Orders 05/19/25 10:11 Complete Blood Count AUTO DIFF Stat Comprehensive Metabolic Panel Stat Lipase Stat 05/19/25 10:13 Urine Microscopic Stat 05/19/25 11:55 CT IVP A/P W/WO Stat 05/19/25 13:42 US abdomen limited Stat Discontinued Medications Sodium Chloride (Normal Saline 0.9%) 1,000 mls @ 1,000 mls/hr IV BOLUS ONE Stop: 05/19/25 12:54 Last Infusion: 05/19/25 13:36 Dose: Infused Documented By: Admin: 05/19/25 12:01 Dose: 1,000 mls/hr Documented By: DIDIER Ketorolac Tromethamine (Ketorolac 30 Mg/Ml Vial) 15 mg IV NOW ONE Stop: 05/19/25 11:56 Last Admin: 05/19/25 12:01 Dose: 15 mg Documented By: DIDIER Ondansetron HCl (Ondansetron 4 Mg/2 Ml Inj) 4 mg IV NOW PRN PRN Reason: Nausea And Vomiting Ondansetron HCl (Ondansetron 4 Mg Odt) 4 mg PO NOW PRN PRN Reason: Nausea And Vomiting Ondansetron HCl (Ondansetron 4 Mg/2 Ml Inj) 4 mg IV NOW ONE Stop: 05/19/25 11:56 Last Admin: 05/19/25 13:36 Dose: Not Given Documented By: Vital Signs Vital signs: Vital Signs - 8 hr 05/19/25 09:58 05/19/25 14:30 05/19/25 16:23 Temperature 98 F Pulse Rate 109 H 96 H 85 Respiratory Rate 16 16 16 Blood Pressure 137/88 156/77 H 128/82 Pulse Oximetry 100 98 100 Oxygen Delivery Method Room Air Room Air Room Air MDM - Abdominal Pain Medical Records Attestation: I reviewed the patient's medical records. Lab Data 05/19/25 10:11 05/19/25 10:11 Labs: Lab Results 05/19/25 05/19/25 Range/Units 10:11 10:13 WBC 6.4 (4.5-11.0) X10^3/uL RBC 4.58 (4.0-5.2) X10^6/uL Hgb 13.6 (12.0-16.0) g/dL Hct 38.7 (36-46) % MCV 84.4 (80-100) fL MCH 29.6 (26-34) PG MCHC 35.1 (30-36) % RDW 12.7 (11.6-14.8) % Plt Count 318 (150-400) X10^3/uL Neut % (Auto) 65.1 (50-75) % Lymph % (Auto) 24.5 L (25-40) % Ceiba % (Auto) 6.9 (3-14) % Eos % (Auto) 2.5 (2-4) % Baso % (Auto) 1.0 (0-2) % Neut # (Auto) 4200 (0689-1417) /uL Lymph # (Auto) 1600 (2063-8787) /uL Ceiba # (Auto) 400 (0-900) /uL Eos # (Auto) 200 (0-450) /uL Baso # (Auto) 100 (0-100) /uL Sodium 139 (137-145) mmol/L Potassium 4.5 (3.4-5.1) mmol/L Chloride 105 (98-107) mmol/L Carbon Dioxide 26 (22-32) mmol/L BUN 10 (7-17) mg/dL Creatinine 0.72 (0.52-1.04) mg/dL Estimated GFR > 60 (>60) mL/min BUN/Creatinine Ratio 13.9 (6-22) Glucose 116 H (70-99) mg/dL Calcium 9.6 (8.4-10.2) mg/dL Total Bilirubin 1.6 H (0.2-1.3) mg/dL AST 26 (14-36) IU/L ALT 23 (<35) IU/L Alkaline Phosphatase 61 (38-126) U/L Total Protein 8.2 (6.3-8.2) g/dL Albumin 4.9 (3.5-5.0) g/dL Globulin 3.3 (1.7-4.1) g/dL Albumin/Globulin Ratio 1.5 (1.0-2.8) Lipase 35 (23-300) U/L Urine RBC 10-30/hpf H (0-5/HPF) Urine WBC None seen (0-5/HPF) Ur Squamous Epith Cells None seen (0-5/HPF) Urine Bacteria None seen (None) Ur Culture Indicated? Cult not indicated Vol Urine Centrifuged 10ml (spun) Point of care testing: Point of Care Testing Test Results Negative Urine Dip Bedside Urine Glucose Negative Bedside Urine Bilirubin - Negative Bedside Urine Ketone - Negative Urine Specific [place] 1.000 Bedside Urine Occult Blood +++ Bedside Urine pH 6.0 Bedside Urine Protein + 30 Bedside Urine Urobilinogen - Negative Bedside Urine Nitrite - Negative Bedside Urine Leukocytes - Negative Esterase Imaging Data CT scan - abdomen/pelvis: Radiologist's Impression: PROCEDURE: CT IVP A/P W/WO INDICATIONS: hematuria; R sided abd pain; urology requested TECHNIQUE: Optional 5 mm thick noncontrast images acquired from the diaphragm to the symphysis pubis. After the administration of intravenous contrast, 5 mm thick images acquired from the diaphragm to the symphysis pubis after a 10-minute delay. 2 mm thick coronal and sagittal reformats were then performed of the kidneys and ureters. For radiation dose reduction, the following was used: automated exposure control, adjustment of mA and/or kV according to patient size. COMPARISON: Located Within [facility], CT, CT ABDOMEN PELVIS WO CON, 05/17/2025, 16:28. FINDINGS: Image quality: Diagnostic. Kidneys and Ureters: Both kidneys are normal in size. No kidney stones. There is mild caliectasis at the superior pole the right kidney. The superior calyx does not fill with opacified contrast. Increased density on noncontrast series and on prior CT 05/17/2025. Additionally, there is asymmetric hypoenhancement of the superior pole the left kidney, (5/80). No hydroureter. No ureteral filling defect. No solid renal mass. Bladder: Bladder wall thickness is normal. No calcified bladder stones. OTHER: Lower chest: Unremarkable. Liver: No solid mass. Gallbladder: Small calcified gallstone. Biliary ducts: No biliary dilation. Pancreas: No ductal dilation. Spleen: Size is within normal limits. Adrenal Glands: No adrenal nodules. Stomach and Bowel: Normal colonic caliber, without significant wall thickening. The appendix is absent. Peritoneum: No abnormal intraperitoneal fluid. No free air. Ventral Wall: No hernia. Abdominal Nodes: No retroperitoneal or mesenteric adenopathy by size criteria. Vessels: Aorta and inferior vena cava are normal in size. PELVIS: Pelvic Organs: Anteverted uterus. Pelvic Nodes: No enlarged lymph nodes. Miscellaneous: No inguinal hernias are seen. Bones: No aggressive osseous abnormality. IMPRESSION: 1. Mild right kidney superior pole caliectasis. Suspected filling defect within the calyx with increased density on the noncontrast series. This could represent a hematoma. Neoplasm is felt to be less likely. 2. Additionally, there is hypoenhancement of the superior pole of the right kidney. This could be due to the obstructive process in the superior pole calyx. However, difficult to exclude infectious process such as pyelonephritis. Recommend correlation with urinalysis if not yet performed. 3. No kidney stones. No ureteral filling defect. 4. Small gallstone. Dictated by: Brian Ortiz M.D. on 05/19/2025 at 12:10 Approved by: Brian Ortiz M.D. on 05/19/2025 at 12:25 Abd US: Radiologist's Impression: PROCEDURE: US ABDOMEN LIMITED INDICATIONS: Right upper quadrant pain. Flank pain. TECHNIQUE: Real-time scanning was performed of the abdominal and retroperitoneal organs, with image documentation. COMPARISON: Located Within [facility], CT, CT IVP A/P W/WO, 05/19/2025, 11:58. Located Within [facility], CT, CT ABDOMEN PELVIS WO CON, 05/17/2025, 16:28. FINDINGS: Liver: Liver is normal in size and homogeneous in echotexture. Gallbladder: Small gallstone measuring at 0.6 cm. No wall thickening. No pericholecystic edema. Negative sonographic Arce's sign. Biliary ducts: Intrahepatic bile ducts are non-dilated. Extrahepatic bile duct caliber measures 6 mm. Normal is 6-7 mm or less in diameter, or 10 mm or less post-cholecystectomy. Pancreas: Visualized portions of the pancreas are sonographically normal. Right kidney: Measures 11.3 cm. No hydronephrosis appreciated. The abnormality seen on recent CT is not appreciated. Miscellaneous: No free abdominal fluid. IMPRESSION: 1. No acute cholecystitis. Small gallstone. 2. No right hydronephrosis appreciated. Abnormality seen on recent CT is not appreciated. Dictated by: Brian Ortiz M.D. on 05/19/2025 at 14:40 Approved by: Brian Ortiz M.D. on 05/19/2025 at 14:44 MDM Narrative Medical decision making narrative: 34-year-old female with a past medical history of AUB with hysterectomy scheduled for next month, appendectomy who presents to the emergency department for worsening hematuria and right-sided flank pain x 4 days. Differential diagnosis includes but is not limited to nephrolithiasis, ureterolithiasis, pyelonephritis, renal blood clots, biliary colic, renal colic, etc. On exam patient is in no acute distress, nontoxic appearing, vital signs within normal limits in triage except for mildly elevated heart rate. Patient was seen in the ER on 05/17/2025 for her current symptoms, at that time had a CT abdomen and pelvis without contrast due to difficulty obtaining IV. This revealed hypodensity seen in the right renal collecting system which may represent blood clots, urology at [facility] was consulted and recommended CT urogram which was unable to be obtained in the ER at that times they recommended outpatient follow up. Patient returns to the ER today due to worsening symptoms. Physical exam reveals nonfocal tenderness to palpation of the right side of the abdomen, patient is also continuing to have hematuria but no difficulty urinating. Labs and urine obtained in triage, we will add on CT IVP in the ER today. Labs reassuring with a normal WBC count 6.4, hemoglobin 13.6 hematocrit 38.7. Platelets 318. Normal sodium 139, potassium 4.5, BUN 10 and creatinine 0.72. Glucose 116. Total bilirubin 1.6. Urine reveals RBCs, no signs of infection. 1434: Discussed case with [facility] on-call urologist Dr. Amezquita. He explained that patient could potentially have an underlying AV malformation that may have started bleeding, however patient will need a nonemergent outpatient ureteroscopy performed for further evaluation of potential hematoma versus neoplasm versus other. At this time he recommends outpatient follow up, no specific medication regimen needed. In some cases patient's could potentially need a stent if they are having severe uncontrolled pain however this is not need it at this time. Right upper quadrant ultrasound reveals no acute cholecystitis. Discussed all lab imaging and urinalysis results with the patient. Pain has improved significantly. Discussed the importance of following up with Urology for ureteroscopy. Discussed ED return precautions. She verbalized understanding of all information is agreeable to the plan. Short course of pain medication sent to the pain since pharmacy if needed, discussed risks of narcotic pain medications. She is stable for discharge home. Discharge Plan Departure Patient Disposition: Home Clinical Impression: Caliectasis, Abnormal radiologic findings on diagnostic imaging of right kidney Hematuria Qualifiers: Hematuria type: gross Qualified Code(s): R31.0 - Gross hematuria Gallstone Qualifiers: Cholecystitis presence: without cholecystitis Biliary obstruction: without biliary obstruction Qualified Code(s): K80.20 - Calculus of gallbladder without cholecystitis without obstruction Instructions: DI for Hematuria Activity Restrictions/Additional Instructions: Dear Baljeet, Thank you for coming to the emergency department. Today you were evaluated for right-sided abdominal pain and blood in your urine. A CT scan revealed what appears to be a hematoma in the right kidney, and I spoke with urologist Dr. Amezquita who would like you to have an outpatient ureteroscopy performed for further evaluation of this right kidney abnormality. At this time please use pain medication as needed, rest, hydrate and call [facility] 1st thing Wednesday morning to schedule an appointment. Please follow up with the primary care doctor as well. Please return to the emergency department if you develop any new or worsening symptoms of concern, especially fevers, uncontrollable pain, or difficulty passing urine. You have been prescribed a short course of narcotic medications. These are potentially dangerous and addictive medications that should be used carefully. While on these medications you cannot drive or operate heavy machinery. Additionally, you cannot sign legal documents or perform any duties such as this. Many people get constipated on narcotic medications so it would be advisable to discuss stool softeners with the pharmacist when you mushroom picker your prescription. Please understand that we cannot provide further refills of narcotics or controlled substances through the ED and your pain management will need to be through your Primary Care Provider Please follow up with your primary care doctor within the next 2-3 days for ER follow-up. (If you do not have a PCP you can call [phone]. ?to schedule an appointment with an [facility] Primary Care Provider) IF YOU DEVELOP ANY NEW OR WORSENING SYMPTOMS, RETURN TO THE ER! Please read the attached instructions, they highlight more specific treatments and interventions for you at home. Thank you for letting me participate in your care, Clau Marquez PA-C Prescriptions: New hydrocodone-acetaminophen 5-325 mg tablet 1 tab PO Q4-6H PRN (Reason: pain) Qty: 12 0RF No Action sertraline 50 mg tablet 75 mg PO DAILY Qty: 90 3RF clonazepam 0.5 mg tablet,disintegrating See Rx Instructions PO DAILY PRN (Reason: Anxiety related to travel) Qty: 10 0RF Dose Instruction: 0.5-1mg PO DAILY PRN; Rx Instructions: 0.5-1mg PO DAILY PRN; hydroxyzine HCl 25 mg tablet 25 mg PO BID PRN (Reason: anxiety) Qty: 30 2RF Referrals: Dong Ball DO [Physician, Urology] Referral Note: needs ureteroscopy Mariela Rios MD [Primary Care Provider, Family Practice] Stand Alone Forms: Patient Portal/API
[2025-05-19] MEDS: SODIUM CHLORIDE 0.9% 1,000 ML 1000 ML IV (12:01)
[2025-05-19] MEDS: KETOROLAC 30 MG/ML VIAL 15 MG IV (12:01)
--- NOTE | 2025-05-19 13:42 | DI.US.S_ITS ---
PROCEDURE: US ABDOMEN LIMITED INDICATIONS: Right upper quadrant pain. Flank pain. TECHNIQUE: Real-time scanning was performed of the abdominal and retroperitoneal organs, with image documentation. COMPARISON: [facility], CT, CT IVP A/P W/WO, 05/19/2025, 11:58. [facility], CT, CT ABDOMEN PELVIS WO CON, 05/17/2025, 16:28. FINDINGS: Liver: Liver is normal in size and homogeneous in echotexture. Gallbladder: Small gallstone measuring at 0.6 cm. No wall thickening. No pericholecystic edema. Negative sonographic Arce's sign. Biliary ducts: Intrahepatic bile ducts are non-dilated. Extrahepatic bile duct caliber measures 6 mm. Normal is 6-7 mm or less in diameter, or 10 mm or less post-cholecystectomy. Pancreas: Visualized portions of the pancreas are sonographically normal. Right kidney: Measures 11.3 cm. No hydronephrosis appreciated. The abnormality seen on recent CT is not appreciated. Miscellaneous: No free abdominal fluid. IMPRESSION: 1. No acute cholecystitis. Small gallstone. 2. No right hydronephrosis appreciated. Abnormality seen on recent CT is not appreciated. Dictated by: Brian Ortiz M.D. on 05/19/2025 at 14:40 Approved by: Brian Ortiz M.D. on 05/19/2025 at 14:44
[2025-05-19 14:30] VITALS: BP 156/77; PULSE 96; RESP 16; O2SAT 98
[2025-05-19 16:23] VITALS: BP 128/82; PULSE 85; RESP 16; O2SAT 100
== END 2025-05-19 16:24 | disposition home or self-care (01) ==
PROVIDERS: Emergency Medicine; Emergency Provider Physician Assistant; PCP Student in an Organized Health Care Education/Training Program
DX: K80.20 Calculus of gallbladder without cholecystitis without obstruction (principal); R31.0 Gross hematuria; R93.421 Abnormal radiologic findings on diagnostic imaging of right kidney; N28.89 Other specified disorders of kidney and ureter; R10.9 Unspecified abdominal pain
CPT/HCPCS: 74178; 76705; 80053; 81003; 81015; 81025; 83690; 85025; 96361; 96374; 99283; 99284; J1885; J2405; Q9967

== ENCOUNTER → 2025-05-30 12:43 | Outpatient (CLI) | payer OTHER, SELFPAY | PROVIDERS: PCP Student in an Organized Health Care Education/Training Program; Visit Provider Urology | DX: R31.0 Gross hematuria (principal) | CPT/HCPCS: 87086 ==

== ENCOUNTER → 2025-07-25 10:41 | Outpatient (CLI) | payer OTHER, SELFPAY ==
[2025-06-14 15:47] VITALS: BMI 24.2
[2025-07-25 12:32] LABS: Alanine Aminotransferase 16 IU/L (<35); Albumin 5.0 g/dL (3.5-5.0); Albumin Globulin Ratio 1.7 (1.0-2.8); Alkaline Phosphatase 57 U/L (38-126); Blood Urea Nitrogen 13 mg/dL (7-17); Calcium 10.1 mg/dL (8.4-10.2); Carbon Dioxide 25 mmol/L (22-32); Chloride 104 mmol/L (98-107); Estimated Glomerular Filt Rate > 60 mL/min (>60); Globulin 2.9 g/dL (1.7-4.1); Glucose 79 mg/dL (70-99); HEMOLYSIS < 15 (0-50); Potassium 4.7 mmol/L (3.4-5.1); Sodium 139 mmol/L (137-145); Total Protein 7.9 g/dL (6.3-8.2)
== END ==
PROVIDERS: PCP Student in an Organized Health Care Education/Training Program; Referring Provider Student in an Organized Health Care Education/Training Program; Visit Provider Student in an Organized Health Care Education/Training Program
DX: Z79.899 Other long term (current) drug therapy (principal)
CPT/HCPCS: 36415; 80053